=== PATIENT | female | born 1940 | race Caucasian/White ===

== ENCOUNTER 2018-01-02 08:52 | Emergency (ER) | payer MEDICARE, OTHER ==
--- NOTE | 2018-01-02 09:51 | ED Physician Documentation ---
History of Present Illness <Lillie Reyna W - Last Filed: 01/02/18 09:50> - History obtained from History obtained from: Patient - History of Present Illness Timing: Today (She woke up in the middle night with a pain, it is right lateral low chest wall going through to the back. It is worse if she twists. She is not short of breath with it and it does not hurt to take a deep breath per se. It also feels better in a sitting position than it does laying flat. There is no associated nausea. She has not eaten much today but she did have a peanut butter sandwich and that did not make it worse. She has traveled recently, to [facility]. She denies pedal edema or calf pain.) <Zach Cartagena M - Last Filed: 01/02/18 13:40> - Stated complaint Stated Complaint: RT UPPER SIDE/BACK PX - Chief complaint Chief Complaint: General Review of Systems Constitutional: denies: Fever, Chills, Fatigue Cardiac: denies: Palpitations Respiratory: denies: Dyspnea, Cough GI: denies: Nausea, Vomiting <Zach Cartagena M - Last Filed: 01/02/18 13:40> PD PAST MEDICAL HISTORY - Past Medical History Cardiovascular: Hypertension - Past Surgical History Past Surgical History: Yes Ortho: Arthroscopic surgery /[employer]: Hysterectomy - Social History Does the pt smoke?: No Smoking Status: Never smoker Does the pt drink ETOH?: Yes Does the pt have substance abuse?: No - Immunizations Immunizations are current?: Yes <Lillie Reyna W - Last Filed: 01/02/18 09:50> <Zach Cartagena M - Last Filed: 01/02/18 13:40> - Present Medications Home Medications: Ambulatory Orders Medication Instructions Recorded Confirmed RX: Estradiol 0.5 mg PO DAILY 05/21/15 05/21/15 RX: Lisinopril 10 mg PO DAILY 05/21/15 05/21/15 RX: amLODIPine [Norvasc] 5 mg PO DAILY 05/21/15 05/21/15 Cyclobenzaprine [Flexeril] 10 mg PO TID PRN #7 tablet 01/02/18 - Allergies Allergies/Adverse Reactions: Allergies Allergy/AdvReac Type Severity Reaction Status Date / Time No Known Drug Allergies Allergy Verified 05/21/15 09:44 PD ED PE NORMAL - Vitals Vital signs reviewed: Yes - General General: Alert and oriented X 3, No acute distress - HEENT HEENT: Pharynx benign - Neck Neck: Supple, no meningeal sign, No bony TTP - Cardiac Cardiac: RRR, No murmur - Respiratory Respiratory: No respiratory distress, Clear bilaterally - Abdomen Abdomen: Normal bowel sounds, Soft, Non tender - Derm Derm: No rash (Specifically looking for shingles rash, none is present at this juncture) - Extremities Extremities: No edema, No calf tenderness / cord - Neuro Neuro: Alert and oriented X 3, Normal speech <OsielZach Mono - Last Filed: 01/02/18 13:40> Results - EKG (time done) 0932 Rate: Rate (enter#) (66) Rhythm: NSR QRS: Low voltage Ischemia: Normal ST segments <LaurafernLillie W - Last Filed: 01/02/18 09:50> - Vitals Vitals: Vital Signs - 24 hr 01/02/18 01/02/18 09:22 13:15 Temperature 36.5 C Heart Rate 69 70 Respiratory 14 14 Rate Blood Pressure 175/72 H 160/72 H O2 Saturation 100 100 Oxygen O2 Source Room air - Labs Labs: Laboratory Tests 01/02/18 01/02/18 01/02/18 11:37 11:37 11:37 WBC 6.9 RBC 4.19 L Hgb 14.1 Hct 41.5 MCV 99.2 H MCH 33.8 H MCHC 34.0 RDW 13.2 Plt Count 261 MPV 7.6 L Neut # (Auto) 5.1 Lymph # (Auto) 1.2 L Early # (Auto) 0.5 Eos # (Auto) 0.1 Baso # (Auto) 0.0 Absolute Nucleated RBC 0.00 Nucleated RBC % 0.0 D-Dimer < 200.0 L Sodium 141 Potassium 3.5 Chloride 104 Carbon Dioxide 30 Anion Gap 7.0 BUN 17 Creatinine 0.4 Estimated GFR (MDRD) 154 Glucose 108 H Calcium 9.3 Total Bilirubin 0.8 AST 23 ALT 16 Alkaline Phosphatase 36 L Troponin I Total Protein 6.8 Albumin 4.5 Globulin 2.3 Albumin/Globulin Ratio 2.0 Lipase 37 Urine Color Urine Clarity Urine pH Ur Specific [place] Urine Protein Urine Glucose (UA) Urine Ketones Urine Occult Blood Urine Nitrite Urine Bilirubin Urine Urobilinogen Ur Leukocyte Esterase Ur Microscopic Review Urine Culture Comments 01/02/18 01/02/18 11:37 11:48 WBC RBC Hgb Hct MCV MCH MCHC RDW Plt Count MPV Neut # (Auto) Lymph # (Auto) Early # (Auto) Eos # (Auto) Baso # (Auto) Absolute Nucleated RBC Nucleated RBC % D-Dimer Sodium Potassium Chloride Carbon Dioxide Anion Gap BUN Creatinine Estimated GFR (MDRD) Glucose Calcium Total Bilirubin AST ALT Alkaline Phosphatase Troponin I < 0.04 Total Protein Albumin Globulin Albumin/Globulin Ratio Lipase Urine Color YELLOW Urine Clarity CLEAR Urine pH 6.0 Ur Specific [place] 1.025 Urine Protein NEGATIVE Urine Glucose (UA) NEGATIVE Urine Ketones NEGATIVE Urine Occult Blood NEGATIVE Urine Nitrite NEGATIVE Urine Bilirubin NEGATIVE Urine Urobilinogen 0.2 (NORMAL) Ur Leukocyte Esterase NEGATIVE Ur Microscopic Review NOT INDICATED Urine Culture Comments NOT INDICATED PD MEDICAL DECISION MAKING <Lillie Reyna W - Last Filed: 01/02/18 09:50> <Zach Cartagena - Last Filed: 01/02/18 13:40> - ED course ED course: The history and physical suggests a muscular origin of her pain. Other etiologies are considered given her age, vascular abnormality unlikely given normal chest x-ray, negative d-dimer, and patient very comfortable with no need for painkillers in the department. She is not tender over her gallbladder and pain did not get worse with eating. Shingles is considered but no rash now but reminded to watch for this. PE is considered given recent travel but her d-dimer and a vital signs are without evidence of this. (Zach Cartagena) - Sepsis Event Vital Signs: Vital Signs - 24 hr 01/02/18 01/02/18 09:22 13:15 Temperature 36.5 C Heart Rate 69 70 Respiratory 14 14 Rate Blood Pressure 175/72 H 160/72 H O2 Saturation 100 100 Oxygen O2 Source Room air Departure <Lillie Reyna - Last Filed: 01/02/18 09:50> - Departure Record reviewed to determine appropriate education?: Yes <Zach Cartagena - Last Filed: 01/02/18 13:40> - Departure Disposition: 01 Home, Self Care Clinical Impression: Right-sided chest pain Condition: Good Instructions: ED Chest Pain NonCardiac Prescriptions: Cyclobenzaprine [Flexeril] 10 mg PO TID PRN #7 tablet PRN Reason: Spasms Comments: As discussed, this seems like muscular pain, but there are a few things you need to watch out for. One is the rash that would be associated with shingles. Please return if you develop a rash anywhere in that area. Second would be a gallbladder issue, it really does not seem like that but if you notice increased pain after eating, you will need reevaluation for that. Call your doctor to arrange a follow-up appointment, make the next available appointment. In the interim, return anytime if worse or if new symptoms develop. Your blood pressure was elevated today on check into the emergency department. This does not mean that you have hypertension, it is a common phenomenon to come to the emergency department and have elevated blood pressure. I recommend that you see your primary care physician within the week to have it rechecked when you are feeling better. Discharge Date/Time: 01/02/18 13:15
[2018-01-02 11:47] LABS: BASOPHILS % (AUTO) 0.5 %; EOSINOPHILS # (AUTO) 0.1 10^3/uL (0.0-0.7); EOSINOPHILS % (AUTO) 0.9 %; HGB - HEMOGLOBIN 14.1 g/dL (12.0-16.0); LYMPHOCYTES # (AUTO) 1.2 10^3/uL (1.5-3.5); LYMPHOCYTES % (AUTO) 16.8 %; MEAN CORPUSCULAR HEMOGLOBIN 33.8 pg (27.0-31.0); MEAN CORPUSCULAR VOLUME 99.2 fL (81.0-99.0); MEAN PLATELET VOLUME 7.6 fL (7.9-10.8); MONOCYTES # (AUTO) 0.5 10^3/uL (0.0-1.0); NEUTROPHILS # (AUTO) 5.1 10^3/uL (1.5-6.6); NEUTROPHILS % (AUTO) 74.8 %; PLT - PLATELET COUNT 261 10^3/uL (130-450); RED BLOOD COUNT 4.19 10^6/uL (4.20-5.40); RED CELL DISTRIBUTION WIDTH 13.2 % (12.0-15.0); WHITE BLOOD COUNT 6.9 x10^3/uL (4.8-10.8)
[2018-01-02 11:53] LABS: BILIRUBIN,URINE NEGATIVE (NEGATIVE); GLUCOSE, URINE (UA) NEGATIVE (NEGATIVE); KETONES,URINE (UA) NEGATIVE (NEGATIVE); LEUKOCYTE ESTERASE, URINE NEGATIVE (NEGATIVE); NITRITE,URINE NEGATIVE (NEGATIVE); OCCULT BLOOD,URINE NEGATIVE (NEGATIVE); PROTEIN,URINE NEGATIVE (NEGATIVE); UROBILINOGEN,URINE 0.2 (NORMAL) E.U./dL (NORMAL)
[2018-01-02 11:54] LABS: CLARITY,URINE CLEAR (CLEAR)
[2018-01-02 11:57] LABS: ALBUMIN 4.5 g/dL (3.2-5.5); BILIRUBIN,TOTAL 0.8 mg/dL (0.2-1.0); CALCIUM 9.3 mg/dL (8.5-10.3); CREATININE 0.4 mg/dL (0.4-1.0); TOTAL PROTEIN 6.8 g/dL (6.7-8.2)
--- NOTE | 2018-01-02 13:00 | XRAY Report ---
Reason: R low chest pain Procedure Date: 01/02/2018 Accession Number: [id number] / [id number] Procedure: XR - Chest 2 View X-Ray CPT Code: 09716 FULL RESULT: EXAM: CHEST RADIOGRAPHY EXAM DATE: 01/02/2018 12:40 PM. CLINICAL HISTORY: R low chest pain. COMPARISON: None. TECHNIQUE: 2 views. FINDINGS: Lungs/Pleura: No definite localized infiltrate, consolidation, effusion, or pneumothorax. Mediastinum: Heart and mediastinal contours are unremarkable. Upper lobe vessels not distended. Other: Mild scoliosis with degenerative changes. IMPRESSION: No acute disease. [facility]
[2018-01-02 13:16] VITALS: BP 160/72
== END 2018-01-02 13:15 | disposition home or self-care (01) ==
LOC: ED 08:52
DX: R07.89 Other chest pain (principal); I10 Essential (primary) hypertension
CPT/HCPCS: 36415; 71046; 80053; 81001; 81003; 83690; 84484; 85025; 85379; 87086; 93005; 99283